=== PATIENT | female | born 1945 | race Caucasian/White ===

== ENCOUNTER 2017-10-25 14:41 | Inpatient (IN) | payer OTHER, BC ==
[~2017-10-25] VITALS: Ht 162.6 cm; Wt 104.0 kg
[~2017-10-25 14:41] MED LIST: ADVIL200 MG PO; AMBIEN5 MG PO; ANTIVERT25 MG PO; ASPIR-TRIN325 M1 PO; Ambien PO; Antivert PO; BIOTIN 5000MCG PO; CELEBREX200 MG PO; CINNAMON PO; CRANBERRY200 MG PO; FEOSOL325 MG PO; FLAX OIL1000 MG PO; GARLIC1000 MG PO; HUMULIN N100 UNITS/ SC; HUMULIN NP100 UNIT/1 SC; HYDROCODON-ACE1 EAC7 PO; K-DUR10 ME2 PO; K-DUR20 MEQ PO; LASIX40 MG PO; LIPITOR20 MG PO; LISINOPRIL30 MG PO; Lopressor PO; MELOXICAM15 MG PO; METFORMIN HCL1000 MG PO; MULTIPLE VITAM1 EAC4 PO; PREVACID 24HR15 MG PO; Prevacid PO; SENOKOT S,PE1 TABLET PO; TOPROL XL50 MG PO; VAGIFEM10 MCG VG; VAGIFEM25 MCG VG; VESICARE5 MG PO; VITAMIN B12-FO1 EACH PO; VITAMIN C1000 MG PO; VITAMIN D32000 UNIT PO; Vicodin,Lortab 5/500 PO; ZESTRIL,PRINIVI10 M1 PO; [UNRECOGNIZED DRUG - OTHER]; [UNRECOGNIZED DRUG - OTHER] PO; [UNRECOGNIZED DRUG - OTHER] PO
[2017-10-25 15:23] LABS: PLATELET COUNT 549 K/uL (156-360)
[2017-10-25 15:31] LABS: HEMATOCRIT 36.2 % (36.0-46.0); MCH 28.6 PG (29.0-34.0); MCHC 33.1 G/DL (30.0-36.0); MCV 86.2 FL (83-99); RBC DIS.WIDTH-CV 13.9 % (11.8-14.6)
[2017-10-25 15:32] LABS: WHITE BLOOD COUNT 39.9 K/uL (4.1-10.2)
[2017-10-25 15:34] LABS: CHLORIDE 95 mEq/L (99-109); SODIUM 129 mEq/L (136-147)
[2017-10-25 15:39] LABS: CREATININE 2.2 mg/dL (0.6-1.3); GFR ESTIMATE (CALCULATED) 23 mL/min/
[2017-10-25 15:40] LABS: GLUCOSE 552 mg/dL (70-99); UREA NITROGEN (BUN) 32 mg/dL (9-23)
[2017-10-25 16:32] LABS: INTER. NORMALIZED RATIO 1.4
[2017-10-25 16:34] LABS: PTT 32.9 SEC (25-37)
[2017-10-25 16:36] LABS: ALBUMIN 3.3 g/dL (3.2-4.8)
[2017-10-25 16:38] LABS: TOTAL PROTEIN 7.4 g/dL (6.4-8.3)
[2017-10-25 16:40] LABS: TOTAL BILIRUBIN 0.9 mg/dL (0.0-1.0)
[2017-10-25 16:41] LABS: ALKALINE PHOSPHATASE 65 IU/L (3-129)
[2017-10-25 16:44] LABS: ALT (GPT) 12 IU/L (3-49); AST (GOT) 11 IU/L (2-34); DIRECT BILIRUBIN 0.6 mg/dL (0.0-0.3)
[2017-10-25 16:45] LABS: LIPASE 11 U/L (1.0-51.0)
[2017-10-25 16:49] LABS: TROP-I INTERPRETATION NEGATIVE; TROPONIN-I 0.02 ng/mL (0.0-0.30)
[2017-10-25 17:45] LABS: APPEARANCE SL.HAZY ((CLEAR)); BILIRUBIN NEGATIVE; BLOOD NEGATIVE; COLOR YELLOW ((YELLOW)); GLUCOSE (STRIP) >=500; KETONES 5; LEUKOCYTES NEGATIVE; NITRITE NEGATIVE; PROTEIN (STRIP) >=500; SPECIFIC GRAVITY 1.032 (1.000-1.030); UROBILINOGEN 0.2 MG/DL (0.2-1.0)
[2017-10-25 18:04] LABS: BACTERIA RARE /HPF; CELLULAR CASTS 0-5 /LPF; EPITHELIAL CELLS 3+ /HPF; HYALINE CASTS 0-5 /LPF; MUCUS TRACE /LPF; RED BLOOD CELLS 0-5 /HPF (0-5); UCUL ADDED? NO; WHITE BLOOD CELLS 0-5 /HPF (0-5)
[2017-10-25 19:09] LABS: POTASSIUM 4.2 mEq/L (3.7-5.4); SODIUM 130 mEq/L (136-147)
[2017-10-25 19:15] LABS: GFR ESTIMATE (CALCULATED) 25 mL/min/
[2017-10-25 19:41] LABS: CHLORIDE 96 mEq/L (99-109)
[2017-10-25 19:46] LABS: CREATININE 2.1 mg/dL (0.6-1.3)
[2017-10-25 19:47] LABS: GLUCOSE 523 mg/dL (70-99); UREA NITROGEN (BUN) 30 mg/dL (9-23)
[2017-10-25 22:54] LABS: APPEARANCE HAZY/YELLOW
[2017-10-25 22:55] LABS: CHLORIDE 101 mEq/L (99-109); POTASSIUM 3.6 mEq/L (3.7-5.4); SODIUM 132 mEq/L (136-147)
[2017-10-25 22:57] LABS: GLUCOSE 319 mg/dL (70-99)
[2017-10-25 23:00] LABS: CREATININE 1.9 mg/dL (0.6-1.3); GFR ESTIMATE (CALCULATED) 28 mL/min/
[2017-10-25 23:01] LABS: UREA NITROGEN (BUN) 33 mg/dL (9-23)
[2017-10-25 23:17] LABS: BODY FLUID RBC'S 325 /MM^3 (0-100)
[2017-10-25 23:18] LABS: BODY FLUID WBC'S 14850 /MM^3 (0-500)
[2017-10-25 23:19] LABS: TYPE OF FLUID PLEURAL
[2017-10-25 23:24] LABS: BODY FLUID EOSINOPHILS 0 % (0-25); MONONUCLEAR WBC'S 2 %; POLYNUCLEAR WBC'S 98 % (0-25)
[2017-10-26 00:34] LABS: PHOSPHORUS 2.2 mg/dL (2.5-4.9)
[2017-10-26 01:00] VITALS: BP 192/78
[2017-10-26 04:41] VITALS: BP 182/80
[2017-10-26 05:11] LABS: CHLORIDE 102 MEQ/L (99-109); POTASSIUM 3.6 MEQ/L (3.7-5.4); SODIUM 132 MEQ/L (136-147); SODIUM 133 MEQ/L (136-147)
[2017-10-26 05:16] LABS: GFR ESTIMATE (CALCULATED) 26 mL/min/; GLUCOSE 301 mg/dL (70-99); PHOSPHORUS 1.9 mg/dL (2.5-4.9); UREA NITROGEN (BUN) 33 mg/dL (9-23)
[2017-10-26 05:17] LABS: GFR ESTIMATE (CALCULATED) 26 mL/min/; GLUCOSE 308 mg/dL (70-99); PHOSPHORUS 1.8 mg/dL (2.5-4.9); UREA NITROGEN (BUN) 33 mg/dL (9-23)
[2017-10-26 05:57] LABS: CHLORIDE 102 MEQ/L (99-109); GFR ESTIMATE (CALCULATED) 26 mL/min/; GLUCOSE 293 mg/dL (70-99); POTASSIUM 3.7 MEQ/L (3.7-5.4); SODIUM 134 MEQ/L (136-147); UREA NITROGEN (BUN) 33 mg/dL (9-23)
[2017-10-26 07:19] LABS: Estimated Average Glucose 169 mg/dL (70-123); HEMOGLOBIN A1c (GLYCOHEMOGLOB) 7.5 % HGB (Below 5.7)
[2017-10-26 08:00] VITALS: BP 114/70
[2017-10-26 12:00] VITALS: BP 168/72
[2017-10-26 12:15] LABS: CHLORIDE 103 MEQ/L (99-109); GFR ESTIMATE (CALCULATED) 26 mL/min/; GLUCOSE 288 mg/dL (70-99); PHOSPHORUS 2.2 mg/dL (2.5-4.9); POTASSIUM 4.2 MEQ/L (3.7-5.4); SODIUM 134 MEQ/L (136-147); UREA NITROGEN (BUN) 35 mg/dL (9-23)
[2017-10-26] MEDS ORDERED: AMLODIPINE BESY10 MG PO (14:17)
[2017-10-26] MEDS ORDERED: ATORVASTATIN CA20 MG PO (14:22)
[2017-10-26] MEDS ORDERED: BIOTIN5 MG PO (14:23)
[2017-10-26] MEDS ORDERED: BUPROPION HCL150 M2 PO (14:31)
[2017-10-26] MEDS ORDERED: CRANBERRY TABL1 EACH PO (14:33)
[2017-10-26] MEDS ORDERED: CYMBALTA60 MG PO (14:34)
[2017-10-26] MEDS ORDERED: TRICOR145 MG PO (14:34)
[2017-10-26] MEDS ORDERED: LEVO-T88 MCG PO (14:35)
[2017-10-26] MEDS ORDERED: JANUVIA25 M1 PO (14:35)
[2017-10-26] MEDS ORDERED: HUMULIN N100 UNITS/ SC (14:35)
[2017-10-26] MEDS ORDERED: ANTIVERT12.5 MG PO (14:36)
[2017-10-26] MEDS ORDERED: METOPROLOL SUC100 MG PO (14:36)
[2017-10-26] MEDS ORDERED: VESICARE5 MG PO (14:37)
[2017-10-26] MEDS ORDERED: THERAGRAN1 TABLET PO (14:37)
[2017-10-26] MEDS ORDERED: VAGIFEM10 MCG VG (14:37)
[2017-10-26] MEDS ORDERED: CYANOCOBALAM1000 MCG PO (14:38)
[2017-10-26] MEDS ORDERED: AMBIEN10 MG PO (14:39)
[2017-10-26 16:00] VITALS: BP 148/70
[2017-10-26 16:12] LABS: CHLORIDE 100 MEQ/L (99-109); CREATININE 2.1 MG/DL (0.6-1.3); GFR ESTIMATE (CALCULATED) 25 mL/min/; PHOSPHORUS 2.2 mg/dL (2.5-4.9); SODIUM 130 MEQ/L (136-147); UREA NITROGEN (BUN) 38 mg/dL (9-23)
[2017-10-26 16:22] LABS: GLUCOSE 415 mg/dL (70-99)
[2017-10-26 19:28] VITALS: BP 184/84
[2017-10-26 20:19] LABS: CHLORIDE 99 MEQ/L (99-109); POTASSIUM 4.1 MEQ/L (3.7-5.4); SODIUM 129 MEQ/L (136-147)
[2017-10-26 20:54] LABS: GFR ESTIMATE (CALCULATED) 26 mL/min/; PHOSPHORUS 2.4 mg/dL (2.5-4.9); UREA NITROGEN (BUN) 40 mg/dL (9-23)
[2017-10-26 20:56] LABS: GLUCOSE 491 mg/dL (70-99)
[2017-10-27] VITALS (10 sets, daily range): BP systolic 144–191; BP diastolic 70–91
[2017-10-27 05:29] LABS: BASOPHIL (%) 0.1 % (0-1); EOSINOPHIL (%) 0 % (0-5); HEMATOCRIT 29.7 % (36.0-46.0); HEMOGLOBIN 9.6 G/DL (11.9-15.5); IMMATURE GRANULOCYTE (%) 1.9 % (0.0-0.7); LYMPHOCYTE (%) 6.3 % (15-42); LYMPHOCYTE COUNT 1.5 K/uL (1.0-2.8); MCH 28.3 PG (29.0-34.0); MCHC 32.3 G/DL (30.0-36.0); MCV 87.6 FL (83-99); MONOCYTE (%) 6.7 % (3-12); MONOCYTE COUNT 1.6 K/uL (0-0.8); NEUTROPHIL COUNT 20.5 K/uL (1.8-6.4); PLATELET COUNT 444 K/uL (156-360); RBC DIS.WIDTH-CV 13.6 % (11.8-14.6); RBC DIS.WIDTH-SD 43.2 % (39-53); RED BLOOD COUNT 3.39 M/uL (3.80-5.20); WHITE BLOOD COUNT 24.1 K/uL (4.1-10.2)
[2017-10-27 10:31] LABS: CHLORIDE 106 MEQ/L (99-109); CREATININE 2.1 MG/DL (0.6-1.3); GFR ESTIMATE (CALCULATED) 25 mL/min/; POTASSIUM 4.2 MEQ/L (3.7-5.4); UREA NITROGEN (BUN) 44 mg/dL (9-23)
[2017-10-27 10:37] LABS: GLUCOSE 139 mg/dL (70-99); SODIUM 137 MEQ/L (136-147)
[2017-10-28 04:38] VITALS: BP 162/79
[2017-10-28 06:09] LABS: HEMATOCRIT 30.9 % (36.0-46.0); MCH 27.9 PG (29.0-34.0); MCHC 32.4 G/DL (30.0-36.0); MCV 86.1 FL (83-99); NRBC (%) 0.2 /100 WBC (0-0); PLATELET COUNT 567 K/uL (156-360); RBC DIS.WIDTH-CV 13.9 % (11.8-14.6); RBC DIS.WIDTH-SD 44.1 % (39-53); RED BLOOD COUNT 3.59 M/uL (3.80-5.20); WHITE BLOOD COUNT 19.7 K/uL (4.1-10.2)
[2017-10-28 06:11] LABS: CHLORIDE 103 MEQ/L (99-109); CREATININE 2.1 MG/DL (0.6-1.3); GFR ESTIMATE (CALCULATED) 25 mL/min/; POTASSIUM 4.3 MEQ/L (3.7-5.4); SODIUM 134 MEQ/L (136-147); UREA NITROGEN (BUN) 40 mg/dL (9-23)
[2017-10-28 06:12] LABS: GLUCOSE 67 mg/dL (70-99)
[2017-10-28 07:36] VITALS: BP 170/74
[2017-10-28 10:52] VITALS: BP 158/72
[2017-10-28 16:04] VITALS: BP 150/78
[2017-10-28 19:18] VITALS: BP 169/76
[2017-10-28 23:40] VITALS: BP 132/64
[2017-10-29 03:15] VITALS: BP 196/81
[2017-10-29 08:03] VITALS: BP 147/68
[2017-10-29 10:36] LABS: CHLORIDE 107 MEQ/L (99-109); CREATININE 2.1 MG/DL (0.6-1.3); GFR ESTIMATE (CALCULATED) 25 mL/min/; SODIUM 140 MEQ/L (136-147); UREA NITROGEN (BUN) 42 mg/dL (9-23)
[2017-10-29 10:37] LABS: GLUCOSE 198 mg/dL (70-99)
[2017-10-29 11:58] VITALS: BP 135/66
[2017-10-29 15:47] VITALS: BP 159/78
[2017-10-29 19:55] VITALS: BP 134/76
[2017-10-30 04:21] VITALS: BP 148/72
[2017-10-30 05:27] LABS: HEMATOCRIT 29.3 % (36.0-46.0); HEMOGLOBIN 9.2 G/DL (11.9-15.5); MCH 27.5 PG (29.0-34.0); MCHC 31.4 G/DL (30.0-36.0); MCV 87.5 FL (83-99); PLATELET COUNT 537 K/uL (156-360); RBC DIS.WIDTH-CV 14.3 % (11.8-14.6); RBC DIS.WIDTH-SD 45.9 % (39-53); RED BLOOD COUNT 3.35 M/uL (3.80-5.20); WHITE BLOOD COUNT 19.5 K/uL (4.1-10.2)
[2017-10-30 06:08] LABS: CHLORIDE 108 MEQ/L (99-109); CREATININE 2.1 MG/DL (0.6-1.3); GFR ESTIMATE (CALCULATED) 25 mL/min/; GLUCOSE 124 mg/dL (70-99); POTASSIUM 3.5 MEQ/L (3.7-5.4); SODIUM 139 MEQ/L (136-147); UREA NITROGEN (BUN) 35 mg/dL (9-23)
[2017-10-30 07:32] VITALS: BP 152/72
[2017-10-30 10:59] VITALS: BP 138/93
[2017-10-30 15:30] VITALS: BP 187/79
[2017-10-30 23:11] VITALS: BP 130/74
[2017-10-31 04:49] VITALS: BP 181/78
[2017-10-31 06:10] LABS: CHLORIDE 105 MEQ/L (99-109); CREATININE 2.3 MG/DL (0.6-1.3); GFR ESTIMATE (CALCULATED) 22 mL/min/; SODIUM 136 MEQ/L (136-147); UREA NITROGEN (BUN) 39 mg/dL (9-23)
[2017-10-31 06:11] LABS: GLUCOSE 285 mg/dL (70-99); POTASSIUM 5.2 MEQ/L (3.7-5.4)
[2017-10-31 07:12] LABS: HEMOGLOBIN 9.4 G/DL (11.9-15.5); MCH 27.4 PG (29.0-34.0); MCHC 31.3 G/DL (30.0-36.0); MCV 87.5 FL (83-99); PLATELET COUNT 608 K/uL (156-360); RBC DIS.WIDTH-CV 14.4 % (11.8-14.6); RBC DIS.WIDTH-SD 45.8 % (39-53); RED BLOOD COUNT 3.43 M/uL (3.80-5.20); WHITE BLOOD COUNT 19.8 K/uL (4.1-10.2)
[2017-10-31 08:06] VITALS: BP 137/76
[2017-10-31 13:03] VITALS: BP 160/55
[2017-10-31 16:17] VITALS: BP 147/70
[2017-10-31 19:29] VITALS: BP 170/90
[2017-10-31 23:11] VITALS: BP 172/76
[2017-11-01 06:00] LABS: HEMATOCRIT 29.3 % (36.0-46.0); HEMOGLOBIN 9.3 G/DL (11.9-15.5); MCH 27.4 PG (29.0-34.0); MCHC 31.7 G/DL (30.0-36.0); MCV 86.2 FL (83-99); NRBC (%) 0.1 /100 WBC (0-0); PLATELET COUNT 760 K/uL (156-360); RBC DIS.WIDTH-CV 14.4 % (11.8-14.6); RBC DIS.WIDTH-SD 45.4 % (39-53); WHITE BLOOD COUNT 26.8 K/uL (4.1-10.2)
[2017-11-01 07:58] VITALS: BP 186/79
[2017-11-01 16:25] VITALS: BP 178/79
[2017-11-01 23:40] VITALS: BP 162/69
[2017-11-02 06:29] LABS: HEMATOCRIT 30.3 % (36.0-46.0); HEMOGLOBIN 9.5 G/DL (11.9-15.5); MCH 27.4 PG (29.0-34.0); MCHC 31.4 G/DL (30.0-36.0); MCV 87.3 FL (83-99); NRBC (%) 0.1 /100 WBC (0-0); PLATELET COUNT 747 K/uL (156-360); RBC DIS.WIDTH-CV 14.6 % (11.8-14.6); RBC DIS.WIDTH-SD 46.9 % (39-53); RED BLOOD COUNT 3.47 M/uL (3.80-5.20); WHITE BLOOD COUNT 21.6 K/uL (4.1-10.2)
[2017-11-02 06:41] LABS: CHLORIDE 108 MEQ/L (99-109); CREATININE 2.3 MG/DL (0.6-1.3); GFR ESTIMATE (CALCULATED) 22 mL/min/; GLUCOSE 115 mg/dL (70-99); POTASSIUM 4.4 MEQ/L (3.7-5.4); SODIUM 142 MEQ/L (136-147); UREA NITROGEN (BUN) 49 mg/dL (9-23)
[2017-11-02 07:06] LABS: ATYPICAL LYMPHOCYTE 1.7 %; BAND NEUTROPHILS 0.9 % (0-8.0); EOSINOPHIL ABS CT 0; LYMPHOCYTES 18.2 % (15.0-45.0); MONOCYTES 9.6 % (0-9.0); MYELOCYTES 0.9 %; SEG.NEUTROPHILS 68.7 % (46.0-76.0); SMUDGE CELLS 10.4
[2017-11-02 07:14] VITALS: BP 162/71
[2017-11-02 11:30] VITALS: BP 142/78
[2017-11-02 15:53] VITALS: BP 142/72
[2017-11-02 20:03] VITALS: BP 218/91
[2017-11-02 20:21] VITALS: BP 158/74
[2017-11-02 22:59] VITALS: BP 164/84
[2017-11-03 04:30] VITALS: BP 182/85
[2017-11-03 08:14] VITALS: BP 150/90
[2017-11-03 12:01] VITALS: BP 145/79
[2017-11-03 15:52] VITALS: BP 140/90
[2017-11-03 19:59] VITALS: BP 156/80
[2017-11-04 07:36] VITALS: BP 168/78
[2017-11-04 16:23] VITALS: BP 148/78
[2017-11-04 18:20] VITALS: BP 124/75
[2017-11-05 04:23] VITALS: BP 132/70
[2017-11-05 08:05] VITALS: BP 130/61
[2017-11-05 11:46] VITALS: BP 144/70
[2017-11-05 16:05] VITALS: BP 140/64
[2017-11-05 19:59] VITALS: BP 125/68
[2017-11-05 23:03] VITALS: BP 135/63
[2017-11-06 03:40] VITALS: BP 149/70
[2017-11-06 07:41] LABS: CHLORIDE 103 MEQ/L (99-109); POTASSIUM 4.1 MEQ/L (3.7-5.4); SODIUM 136 MEQ/L (136-147)
[2017-11-06 07:48] LABS: HEMATOCRIT 31.4 % (36.0-46.0); HEMOGLOBIN 9.9 G/DL (11.9-15.5); MCHC 31.5 G/DL (30.0-36.0); MCV 88.7 FL (83-99); RBC DIS.WIDTH-CV 14.6 % (11.8-14.6); RBC DIS.WIDTH-SD 47.6 % (39-53); RED BLOOD COUNT 3.54 M/uL (3.80-5.20)
[2017-11-06 07:56] LABS: GFR ESTIMATE (CALCULATED) 31 mL/min/; GLUCOSE 71 mg/dL (70-99); UREA NITROGEN (BUN) 28 mg/dL (9-23)
[2017-11-06 07:59] LABS: CREATININE 1.7 MG/DL (0.6-1.3)
[2017-11-06 08:19] LABS: HEMATOLOGY COMMENT 1 SMEAR COMPATIBLE; PLAT.SUFFICIENCY INCREASED; PLATELET COUNT 490 K/uL (156-360)
[2017-11-06 08:22] VITALS: BP 168/70
[2017-11-06 10:22] VITALS: BP 138/7
[2017-11-06 15:29] VITALS: BP 152/78
[2017-11-06 19:31] VITALS: BP 157/67
[2017-11-06 23:24] VITALS: BP 138/62
[2017-11-07 03:21] VITALS: BP 125/94
[2017-11-07 08:09] VITALS: BP 133/86
[2017-11-07 11:10] VITALS: BP 142/65
[2017-11-07 12:48] LABS: BASOPHIL (%) 0.1 % (0-1); EOSINOPHIL (%) 0.8 % (0-5); EOSINOPHIL COUNT 0.2 K/uL (0-0.3); HEMATOCRIT 29.6 % (36.0-46.0); HEMOGLOBIN 9.2 G/DL (11.9-15.5); LYMPHOCYTE (%) 8.7 % (15-42); LYMPHOCYTE COUNT 1.9 K/uL (1.0-2.8); MCH 27.8 PG (29.0-34.0); MCHC 31.1 G/DL (30.0-36.0); MCV 89.4 FL (83-99); MONOCYTE (%) 7.1 % (3-12); MONOCYTE COUNT 1.6 K/uL (0-0.8); NEUTROPHIL (%) 82.3 % (45-76); NEUTROPHIL COUNT 17.9 K/uL (1.8-6.4); PLATELET COUNT 455 K/uL (156-360); RBC DIS.WIDTH-CV 14.6 % (11.8-14.6); RBC DIS.WIDTH-SD 46.9 % (39-53); RED BLOOD COUNT 3.31 M/uL (3.80-5.20); WHITE BLOOD COUNT 21.7 K/uL (4.1-10.2)
[2017-11-07 13:16] LABS: CHLORIDE 98 MEQ/L (99-109); CREATININE 1.8 MG/DL (0.6-1.3); GFR ESTIMATE (CALCULATED) 29 mL/min/; POTASSIUM 4.2 MEQ/L (3.7-5.4); SODIUM 133 MEQ/L (136-147); UREA NITROGEN (BUN) 25 mg/dL (9-23)
[2017-11-07 13:17] LABS: GLUCOSE 103 mg/dL (70-99)
[2017-11-07 16:30] VITALS: BP 140/66
[2017-11-07 17:50] LABS: APPEARANCE CLOUDY ((CLEAR)); BILIRUBIN NEGATIVE; BLOOD NEGATIVE; COLOR YELLOW ((YELLOW)); GLUCOSE (STRIP) NEGATIVE; KETONES NEGATIVE; LEUKOCYTES NEGATIVE; NITRITE NEGATIVE; PROTEIN (STRIP) 100; SPECIFIC GRAVITY 1.017 (1.000-1.030); UROBILINOGEN 0.2 MG/DL (0.2-1.0)
[2017-11-07 18:03] LABS: BACTERIA RARE /HPF; EPITHELIAL CELLS RARE /HPF; HYALINE CASTS 0-5 /LPF; MUCUS TRACE /LPF; WHITE BLOOD CELLS 0-5 /HPF (0-5)
[2017-11-07 20:33] VITALS: BP 132/62
[2017-11-07 23:41] VITALS: BP 147/67
[2017-11-08 04:28] VITALS: BP 162/69
[2017-11-08 08:19] VITALS: BP 133/80
[2017-11-08 11:32] VITALS: BP 163/78
[2017-11-08 15:37] VITALS: BP 168/62
[2017-11-08 19:46] VITALS: BP 180/74
[2017-11-08 23:51] VITALS: BP 188/77
[2017-11-09 03:46] VITALS: BP 145/73
[2017-11-09 07:58] VITALS: BP 147/67
[2017-11-09 12:23] VITALS: BP 170/69
[2017-11-09 15:55] VITALS: BP 163/89
[2017-11-09 19:48] VITALS: BP 162/82
[2017-11-09 23:20] VITALS: BP 168/75
[2017-11-10] VITALS (17 sets, daily range): BP systolic 128–170; BP diastolic 58–96
[2017-11-10 06:04] LABS: BASOPHIL (%) 0.5 % (0-1); BASOPHIL COUNT 0.1 K/uL (0-0.1); EOSINOPHIL (%) 0.7 % (0-5); EOSINOPHIL COUNT 0.1 K/uL (0-0.3); HEMATOCRIT 23.1 % (36.0-46.0); HEMOGLOBIN 7.3 G/DL (11.9-15.5); IMMATURE GRANULOCYTE (%) 0.7 % (0.0-0.7); LYMPHOCYTE (%) 20.7 % (15-42); LYMPHOCYTE COUNT 2.2 K/uL (1.0-2.8); MCH 27.9 PG (29.0-34.0); MCHC 31.6 G/DL (30.0-36.0); MCV 88.2 FL (83-99); MONOCYTE (%) 11.2 % (3-12); MONOCYTE COUNT 1.2 K/uL (0-0.8); NEUTROPHIL (%) 66.2 % (45-76); PLATELET COUNT 385 K/uL (156-360); RBC DIS.WIDTH-CV 14.5 % (11.8-14.6); RBC DIS.WIDTH-SD 46.5 % (39-53); WHITE BLOOD COUNT 10.6 K/uL (4.1-10.2)
[2017-11-10 06:23] LABS: RED BLOOD COUNT 2.62 M/uL (3.80-5.20)
[2017-11-10 06:26] LABS: GLUCOSE 131 mg/dL (70-99)
[2017-11-10 07:13] LABS: BASE EXCESS 1.2 mEq/L (-3 to +3); BICARBONATE 24.6 mEq/L (22-26); CARBOXY HGB 0.8 % (0-5); METHEMOGLOBIN 0.8 % (0-1.5); PCO2 33 mm Hg (35-45); PO2 174 mm Hg (80-100); pH 7.48 (7.35-7.45)
[2017-11-10 07:14] LABS: COMMENTS - BLOOD GASES A+C+; DEVICE 840 PB; FI02 80 %; MODE SPONT; O2 FLOW 70 L/MIN; PEEP 6 CM/H20; PRES. SUPPORT 12 CM/H2O; SITE RR; TOTAL RESP RATE 25 resp/min
[2017-11-10 08:30] LABS: CREATININE 1.7 MG/DL (0.6-1.3); GFR ESTIMATE (CALCULATED) 31 mL/min/; UREA NITROGEN (BUN) 14 mg/dL (9-23)
[2017-11-10 09:05] LABS: CHLORIDE 103 MEQ/L (99-109); POTASSIUM 3.5 MEQ/L (3.7-5.4); SODIUM 138 MEQ/L (136-147)
[2017-11-11] VITALS (23 sets, daily range): BP systolic 130–186; BP diastolic 56–97
[2017-11-11 14:53] LABS: CHLORIDE 102 MEQ/L (99-109); POTASSIUM 3.2 MEQ/L (3.7-5.4); SODIUM 139 MEQ/L (136-147)
[2017-11-11 14:59] LABS: CREATININE 1.6 MG/DL (0.6-1.3); GFR ESTIMATE (CALCULATED) 34 mL/min/; GLUCOSE 143 mg/dL (70-99); UREA NITROGEN (BUN) 14 mg/dL (9-23)
[2017-11-11 15:55] LABS: BASOPHIL (%) 0.4 % (0-1); EOSINOPHIL (%) 0.4 % (0-5); HEMOGLOBIN 8.3 G/DL (11.9-15.5); IMMATURE GRANULOCYTE (%) 0.6 % (0.0-0.7); LYMPHOCYTE (%) 16.2 % (15-42); LYMPHOCYTE COUNT 1.9 K/uL (1.0-2.8); MCH 27.1 PG (29.0-34.0); MCHC 30.7 G/DL (30.0-36.0); MCV 88.2 FL (83-99); MONOCYTE (%) 8.6 % (3-12); NEUTROPHIL (%) 73.8 % (45-76); NEUTROPHIL COUNT 8.4 K/uL (1.8-6.4); PLATELET COUNT 401 K/uL (156-360); RBC DIS.WIDTH-CV 14.6 % (11.8-14.6); RED BLOOD COUNT 3.06 M/uL (3.80-5.20); WHITE BLOOD COUNT 11.4 K/uL (4.1-10.2)
[2017-11-12] VITALS (25 sets, daily range): BP systolic 85–183; BP diastolic 57–118
[2017-11-12 05:51] LABS: BASOPHIL (%) 0.3 % (0-1); EOSINOPHIL (%) 0.4 % (0-5); HEMATOCRIT 22.1 % (36.0-46.0); IMMATURE GRANULOCYTE (%) 0.6 % (0.0-0.7); LYMPHOCYTE (%) 16.7 % (15-42); LYMPHOCYTE COUNT 1.8 K/uL (1.0-2.8); MCH 27.1 PG (29.0-34.0); MCHC 30.8 G/DL (30.0-36.0); MONOCYTE (%) 9.2 % (3-12); NEUTROPHIL (%) 72.8 % (45-76); NEUTROPHIL COUNT 7.9 K/uL (1.8-6.4); PLATELET COUNT 425 K/uL (156-360); RBC DIS.WIDTH-CV 14.7 % (11.8-14.6); RBC DIS.WIDTH-SD 47.7 % (39-53); RED BLOOD COUNT 2.51 M/uL (3.80-5.20); WHITE BLOOD COUNT 10.8 K/uL (4.1-10.2)
[2017-11-12 05:52] LABS: HEMOGLOBIN 6.8 G/DL (11.9-15.5)
[2017-11-12 06:28] LABS: CHLORIDE 106 MEQ/L (99-109); CREATININE 1.6 MG/DL (0.6-1.3); GFR ESTIMATE (CALCULATED) 34 mL/min/; GLUCOSE 148 mg/dL (70-99); SODIUM 139 MEQ/L (136-147); UREA NITROGEN (BUN) 14 mg/dL (9-23)
[2017-11-12 06:29] LABS: POTASSIUM 4.3 MEQ/L (3.7-5.4)
[2017-11-12 10:01] LABS: BASE EXCESS 2.4 mEq/L (-3 to +3); BICARBONATE 26.2 mEq/L (22-26); CARBOXY HGB 1.4 % (0-5); COMMENTS - BLOOD GASES A+C+; DEVICE CPAP/BIPAP; METHEMOGLOBIN 1.4 % (0-1.5); O2 FLOW 15 L/MIN; PCO2 36 mm Hg (35-45); PO2 143 mm Hg (80-100); SITE RR; TOTAL RESP RATE 24 resp/min; pH 7.47 (7.35-7.45)
[2017-11-12 14:59] LABS: HEMATOCRIT 27.9 % (36.0-46.0); HEMOGLOBIN 8.7 G/DL (11.9-15.5); MCH 27.6 PG (29.0-34.0); MCHC 31.2 G/DL (30.0-36.0); MCV 88.6 FL (83-99); PLATELET COUNT 451 K/uL (156-360); RBC DIS.WIDTH-CV 14.6 % (11.8-14.6); WHITE BLOOD COUNT 10.7 K/uL (4.1-10.2)
[2017-11-12 15:10] LABS: RED BLOOD COUNT 3.15 M/uL (3.80-5.20)
[2017-11-13] VITALS (24 sets, daily range): BP systolic 126–167; BP diastolic 56–89
[2017-11-13 15:30] LABS: ABSOLUTE RETICULOCYTE CT. 0.1 M/uL (0.02-0.08); IMM.RETIC FRACTION 25.9 % (3-19); RETIC HGB EQUIVALENT 27.5 (28-36)
[2017-11-13 16:03] LABS: IRON 23 MCG/DL (35-150); LACTATE DEHYDROGENASE 226 IU/L (20-246); TRANSFERRIN (TIBC) 133.1 mg/dL (215-380); TRANSFERRIN SATUR. 17 % (20-55)
[2017-11-13 16:26] LABS: THYROTROPIN (TSH) 6.6 MIU/L (0.4-5.5)
[2017-11-13 18:07] LABS: HIGH-SENS C-REACTIVE PROTEIN > 8.00 MG/DL (0.02-0.20)
[2017-11-14] VITALS (19 sets, daily range): BP systolic 107–178; BP diastolic 47–145
[2017-11-14 06:52] LABS: BASOPHIL (%) 0.5 % (0-1); EOSINOPHIL (%) 2.3 % (0-5); EOSINOPHIL COUNT 0.2 K/uL (0-0.3); HEMATOCRIT 26.8 % (36.0-46.0); HEMOGLOBIN 8.5 G/DL (11.9-15.5); IMMATURE GRANULOCYTE (%) 0.6 % (0.0-0.7); LYMPHOCYTE (%) 25.9 % (15-42); LYMPHOCYTE COUNT 2.2 K/uL (1.0-2.8); MCH 28.1 PG (29.0-34.0); MCHC 31.7 G/DL (30.0-36.0); MCV 88.4 FL (83-99); MONOCYTE (%) 9.8 % (3-12); MONOCYTE COUNT 0.9 K/uL (0-0.8); NEUTROPHIL (%) 60.9 % (45-76); NEUTROPHIL COUNT 5.3 K/uL (1.8-6.4); PLATELET COUNT 429 K/uL (156-360); RBC DIS.WIDTH-CV 14.9 % (11.8-14.6); RBC DIS.WIDTH-SD 47.7 % (39-53); RED BLOOD COUNT 3.03 M/uL (3.80-5.20); WHITE BLOOD COUNT 8.7 K/uL (4.1-10.2)
[2017-11-14 07:10] LABS: ALBUMIN 2.4 G/DL (3.2-4.8); CHLORIDE 101 MEQ/L (99-109); MAGNESIUM 1.4 mg/dl (1.3-2.7); POTASSIUM 3.5 MEQ/L (3.7-5.4); SODIUM 138 MEQ/L (136-147); TOTAL BILIRUBIN 0.5 MG/DL (0.0-1.0)
[2017-11-14 07:15] LABS: ALKALINE PHOSPHATASE 66 IU/L (3-129); ALT (GPT) 10 IU/L (3-49); AST (GOT) 13 IU/L (2-34); CREATININE 1.5 MG/DL (0.6-1.3); GFR ESTIMATE (CALCULATED) 36 mL/min/; GLUCOSE 180 mg/dL (70-99); PHOSPHORUS 2.2 mg/dL (2.5-4.9); TOTAL PROTEIN 5.9 G/DL (6.4-8.3); UREA NITROGEN (BUN) 12 mg/dL (9-23)
[2017-11-15] VITALS (21 sets, daily range): BP systolic 0–198; BP diastolic 0–170
[2017-11-15 06:47] LABS: BASOPHIL (%) 0.5 % (0-1); EOSINOPHIL (%) 1.7 % (0-5); EOSINOPHIL COUNT 0.1 K/uL (0-0.3); HEMATOCRIT 25.3 % (36.0-46.0); HEMOGLOBIN 7.8 G/DL (11.9-15.5); IMMATURE GRANULOCYTE (%) 0.7 % (0.0-0.7); LYMPHOCYTE (%) 29.8 % (15-42); LYMPHOCYTE COUNT 2.3 K/uL (1.0-2.8); MCH 27.1 PG (29.0-34.0); MCHC 30.8 G/DL (30.0-36.0); MCV 87.8 FL (83-99); MONOCYTE (%) 11.1 % (3-12); MONOCYTE COUNT 0.8 K/uL (0-0.8); NEUTROPHIL (%) 56.2 % (45-76); NEUTROPHIL COUNT 4.3 K/uL (1.8-6.4); PLATELET COUNT 410 K/uL (156-360); RBC DIS.WIDTH-CV 14.6 % (11.8-14.6); RBC DIS.WIDTH-SD 46.7 % (39-53); RED BLOOD COUNT 2.88 M/uL (3.80-5.20); WHITE BLOOD COUNT 7.6 K/uL (4.1-10.2)
[2017-11-15 07:26] LABS: ALBUMIN 2.4 G/DL (3.2-4.8); ALKALINE PHOSPHATASE 62 IU/L (3-129); ALT (GPT) 10 IU/L (3-49); AST (GOT) 12 IU/L (2-34); CHLORIDE 103 MEQ/L (99-109); CREATININE 1.7 MG/DL (0.6-1.3); GFR ESTIMATE (CALCULATED) 31 mL/min/; GLUCOSE 149 mg/dL (70-99); MAGNESIUM 1.4 mg/dl (1.3-2.7); PHOSPHORUS 2.8 mg/dL (2.5-4.9); POTASSIUM 3.5 MEQ/L (3.7-5.4); SODIUM 141 MEQ/L (136-147); TOTAL BILIRUBIN 0.4 MG/DL (0.0-1.0); TOTAL PROTEIN 5.7 G/DL (6.4-8.3); UREA NITROGEN (BUN) 9 mg/dL (9-23)
[2017-11-16] VITALS (22 sets, daily range): BP systolic 102–197; BP diastolic 56–123
[2017-11-16 07:13] LABS: BASOPHIL (%) 0.5 % (0-1); BASOPHIL COUNT 0.1 K/uL (0-0.1); EOSINOPHIL (%) 1.5 % (0-5); EOSINOPHIL COUNT 0.2 K/uL (0-0.3); HEMATOCRIT 27.5 % (36.0-46.0); HEMOGLOBIN 8.5 G/DL (11.9-15.5); IMMATURE GRANULOCYTE (%) 1.3 % (0.0-0.7); LYMPHOCYTE COUNT 2.1 K/uL (1.0-2.8); MCH 27.3 PG (29.0-34.0); MCHC 30.9 G/DL (30.0-36.0); MCV 88.4 FL (83-99); MONOCYTE (%) 10.6 % (3-12); MONOCYTE COUNT 1.1 K/uL (0-0.8); NEUTROPHIL (%) 66.1 % (45-76); NEUTROPHIL COUNT 7.1 K/uL (1.8-6.4); PLATELET COUNT 444 K/uL (156-360); RBC DIS.WIDTH-SD 48.3 % (39-53); RED BLOOD COUNT 3.11 M/uL (3.80-5.20); WHITE BLOOD COUNT 10.7 K/uL (4.1-10.2)
[2017-11-16 07:36] LABS: ALBUMIN 2.7 G/DL (3.2-4.8); ALKALINE PHOSPHATASE 81 IU/L (3-129); ALT (GPT) 14 IU/L (3-49); AST (GOT) 22 IU/L (2-34); CHLORIDE 102 MEQ/L (99-109); CREATININE 1.6 MG/DL (0.6-1.3); GFR ESTIMATE (CALCULATED) 34 mL/min/; GLUCOSE 199 mg/dL (70-99); MAGNESIUM 1.4 mg/dl (1.3-2.7); PHOSPHORUS 2.4 mg/dL (2.5-4.9); POTASSIUM 3.8 MEQ/L (3.7-5.4); SODIUM 137 MEQ/L (136-147); TOTAL BILIRUBIN 0.6 MG/DL (0.0-1.0); TOTAL PROTEIN 6.7 G/DL (6.4-8.3); UREA NITROGEN (BUN) 10 mg/dL (9-23)
[2017-11-16 08:11] LABS: BASE EXCESS 1.2 mEq/L (-3 to +3); BICARBONATE 23.7 mEq/L (22-26); CARBOXY HGB 1.3 % (0-5); METHEMOGLOBIN 1.3 % (0-1.5); pH 7.52 (7.35-7.45)
[2017-11-16 08:12] LABS: COMMENTS - BLOOD GASES +C; DEVICE HHFNC; FI02 65 %; O2 FLOW 30 L/MIN; PCO2 29 mm Hg (35-45); PO2 55 mm Hg (80-100); SITE RR +A; TOTAL RESP RATE 44 resp/min
[2017-11-17] VITALS (24 sets, daily range): BP systolic 136–177; BP diastolic 55–119
[2017-11-17 10:03] LABS: BASOPHIL (%) 0.6 % (0-1); BASOPHIL COUNT 0.1 K/uL (0-0.1); EOSINOPHIL (%) 2.4 % (0-5); EOSINOPHIL COUNT 0.2 K/uL (0-0.3); HEMATOCRIT 26.1 % (36.0-46.0); HEMOGLOBIN 7.7 G/DL (11.9-15.5); IMMATURE GRANULOCYTE (%) 1.1 % (0.0-0.7); LYMPHOCYTE (%) 24.1 % (15-42); LYMPHOCYTE COUNT 2.3 K/uL (1.0-2.8); MCH 26.8 PG (29.0-34.0); MCHC 29.5 G/DL (30.0-36.0); MCV 90.9 FL (83-99); MONOCYTE (%) 11.4 % (3-12); MONOCYTE COUNT 1.1 K/uL (0-0.8); NEUTROPHIL (%) 60.4 % (45-76); NEUTROPHIL COUNT 5.9 K/uL (1.8-6.4); PLATELET COUNT 465 K/uL (156-360); RBC DIS.WIDTH-CV 15.2 % (11.8-14.6); RED BLOOD COUNT 2.87 M/uL (3.80-5.20); WHITE BLOOD COUNT 9.7 K/uL (4.1-10.2)
[2017-11-17 10:26] LABS: ALBUMIN 2.6 G/DL (3.2-4.8); ALKALINE PHOSPHATASE 75 IU/L (3-129); ALT (GPT) 13 IU/L (3-49); AST (GOT) 20 IU/L (2-34); CHLORIDE 102 MEQ/L (99-109); CREATININE 1.7 MG/DL (0.6-1.3); GFR ESTIMATE (CALCULATED) 31 mL/min/; GLUCOSE 143 mg/dL (70-99); MAGNESIUM 1.5 mg/dl (1.3-2.7); POTASSIUM 3.9 MEQ/L (3.7-5.4); SODIUM 140 MEQ/L (136-147); TOTAL PROTEIN 6.7 G/DL (6.4-8.3); UREA NITROGEN (BUN) 13 mg/dL (9-23)
[2017-11-17 10:27] LABS: TOTAL BILIRUBIN 0.4 MG/DL (0.0-1.0)
[2017-11-17 11:04] LABS: BASE EXCESS 3.7 mEq/L (-3 to +3); BICARBONATE 28.5 mEq/L (22-26); PCO2 43 mm Hg (35-45); PO2 77 mm Hg (80-100); SITE RR; pH 7.43 (7.35-7.45)
[2017-11-17 11:05] LABS: COMMENTS - BLOOD GASES A+C+; DEVICE HHFNC; FI02 90 %; O2 FLOW 40 L/MIN; TOTAL RESP RATE 34 resp/min
[2017-11-18] VITALS (23 sets, daily range): BP systolic 93–202; BP diastolic 60–133
[2017-11-18 07:10] LABS: ALBUMIN 2.6 G/DL (3.2-4.8); ALKALINE PHOSPHATASE 77 IU/L (3-129); ALT (GPT) 12 IU/L (3-49); AST (GOT) 15 IU/L (2-34); CHLORIDE 102 MEQ/L (99-109); CREATININE 1.7 MG/DL (0.6-1.3); GFR ESTIMATE (CALCULATED) 31 mL/min/; GLUCOSE 130 mg/dL (70-99); MAGNESIUM 1.6 mg/dl (1.3-2.7); PHOSPHORUS 4.5 mg/dL (2.5-4.9); POTASSIUM 3.8 MEQ/L (3.7-5.4); SODIUM 140 MEQ/L (136-147); TOTAL BILIRUBIN 0.4 MG/DL (0.0-1.0); TOTAL PROTEIN 6.5 G/DL (6.4-8.3); UREA NITROGEN (BUN) 14 mg/dL (9-23)
[2017-11-18 08:14] LABS: BASOPHIL (%) 0.7 % (0-1); BASOPHIL COUNT 0.1 K/uL (0-0.1); EOSINOPHIL (%) 3.1 % (0-5); EOSINOPHIL COUNT 0.3 K/uL (0-0.3); HEMATOCRIT 26.5 % (36.0-46.0); HEMOGLOBIN 8.2 G/DL (11.9-15.5); IMMATURE GRANULOCYTE (%) 1.6 % (0.0-0.7); LYMPHOCYTE (%) 29.5 % (15-42); LYMPHOCYTE COUNT 2.5 K/uL (1.0-2.8); MCH 27.8 PG (29.0-34.0); MCHC 30.9 G/DL (30.0-36.0); MCV 89.8 FL (83-99); MONOCYTE (%) 11.4 % (3-12); NEUTROPHIL (%) 53.7 % (45-76); NEUTROPHIL COUNT 4.6 K/uL (1.8-6.4); PLATELET COUNT 511 K/uL (156-360); RBC DIS.WIDTH-CV 15.4 % (11.8-14.6); RBC DIS.WIDTH-SD 50.1 % (39-53); RED BLOOD COUNT 2.95 M/uL (3.80-5.20); WHITE BLOOD COUNT 8.5 K/uL (4.1-10.2)
[2017-11-19] VITALS (22 sets, daily range): BP systolic 105–200; BP diastolic 62–114
[2017-11-19 05:30] LABS: BASOPHIL (%) 0.4 % (0-1); EOSINOPHIL (%) 2.2 % (0-5); EOSINOPHIL COUNT 0.2 K/uL (0-0.3); HEMATOCRIT 25.3 % (36.0-46.0); HEMOGLOBIN 7.7 G/DL (11.9-15.5); IMMATURE GRANULOCYTE (%) 1.3 % (0.0-0.7); LYMPHOCYTE (%) 30.7 % (15-42); LYMPHOCYTE COUNT 2.8 K/uL (1.0-2.8); MCH 27.1 PG (29.0-34.0); MCHC 30.4 G/DL (30.0-36.0); MCV 89.1 FL (83-99); MONOCYTE (%) 11.4 % (3-12); NEUTROPHIL COUNT 4.9 K/uL (1.8-6.4); PLATELET COUNT 511 K/uL (156-360); RBC DIS.WIDTH-CV 15.4 % (11.8-14.6); RBC DIS.WIDTH-SD 49.7 % (39-53); RED BLOOD COUNT 2.84 M/uL (3.80-5.20); WHITE BLOOD COUNT 9.1 K/uL (4.1-10.2)
[2017-11-19 05:55] LABS: ALBUMIN 2.4 G/DL (3.2-4.8); ALKALINE PHOSPHATASE 71 IU/L (3-129); ALT (GPT) 9 IU/L (3-49); AST (GOT) 14 IU/L (2-34); CHLORIDE 100 MEQ/L (99-109); CREATININE 1.5 MG/DL (0.6-1.3); GFR ESTIMATE (CALCULATED) 36 mL/min/; GLUCOSE 139 mg/dL (70-99); MAGNESIUM 1.5 mg/dl (1.3-2.7); PHOSPHORUS 3.1 mg/dL (2.5-4.9); POTASSIUM 3.6 MEQ/L (3.7-5.4); SODIUM 138 MEQ/L (136-147); TOTAL BILIRUBIN 0.4 MG/DL (0.0-1.0); TOTAL PROTEIN 6.1 G/DL (6.4-8.3); UREA NITROGEN (BUN) 13 mg/dL (9-23)
[2017-11-19 08:59] LABS: INTER. NORMALIZED RATIO 1.3
[2017-11-19 09:02] LABS: PTT 30.1 SEC (25-37)
[2017-11-19 18:10] LABS: TYPE OF FLUID PLEURAL
[2017-11-19 18:47] LABS: APPEARANCE HAZY-YELLOW; BODY FLUID EOSINOPHILS 0 % (0-25); BODY FLUID RBC'S 1000 /MM^3 (0-100); BODY FLUID WBC'S 2876 /MM^3 (0-500); MONONUCLEAR WBC'S 18 %; POLYNUCLEAR WBC'S 82 % (0-25)
[2017-11-19 19:00] LABS: BODY FLUID GLUCOSE 208 MG/DL; BODY FLUID LDH 134 IU/L
[2017-11-19 19:03] LABS: BODY FLUID PROTEIN < 3.0 G/DL
[2017-11-19 20:43] LABS: LACTATE DEHYDROGENASE 226 IU/L (20-246)
[2017-11-19 20:45] LABS: GLUCOSE 220 mg/dL (70-99); TOTAL PROTEIN 7.4 G/DL (6.4-8.3)
[2017-11-20] VITALS (23 sets, daily range): BP systolic 122–207; BP diastolic 56–96
[2017-11-20 08:07] LABS: BASOPHIL (%) 0.6 % (0-1); BASOPHIL COUNT 0.1 K/uL (0-0.1); EOSINOPHIL (%) 1.3 % (0-5); EOSINOPHIL COUNT 0.1 K/uL (0-0.3); HEMATOCRIT 26.6 % (36.0-46.0); HEMOGLOBIN 8.2 G/DL (11.9-15.5); IMMATURE GRANULOCYTE (%) 1.8 % (0.0-0.7); LYMPHOCYTE (%) 29.5 % (15-42); LYMPHOCYTE COUNT 2.7 K/uL (1.0-2.8); MCH 27.4 PG (29.0-34.0); MCHC 30.8 G/DL (30.0-36.0); MONOCYTE (%) 11.2 % (3-12); NEUTROPHIL (%) 55.6 % (45-76); PLATELET COUNT 545 K/uL (156-360); RBC DIS.WIDTH-CV 15.7 % (11.8-14.6); RBC DIS.WIDTH-SD 50.1 % (39-53); RED BLOOD COUNT 2.99 M/uL (3.80-5.20)
[2017-11-20 08:32] LABS: ALBUMIN 2.5 G/DL (3.2-4.8); ALKALINE PHOSPHATASE 67 IU/L (3-129); ALT (GPT) 9 IU/L (3-49); AST (GOT) 12 IU/L (2-34); CHLORIDE 101 MEQ/L (99-109); CREATININE 1.4 MG/DL (0.6-1.3); GFR ESTIMATE (CALCULATED) 39 mL/min/; GLUCOSE 180 mg/dL (70-99); MAGNESIUM 1.5 mg/dl (1.3-2.7); PHOSPHORUS 2.3 mg/dL (2.5-4.9); POTASSIUM 3.7 MEQ/L (3.7-5.4); SODIUM 137 MEQ/L (136-147); TOTAL BILIRUBIN 0.4 MG/DL (0.0-1.0); TOTAL PROTEIN 6.3 G/DL (6.4-8.3); UREA NITROGEN (BUN) 13 mg/dL (9-23)
[2017-11-21] VITALS (25 sets, daily range): BP systolic 112–172; BP diastolic 54–127
[2017-11-21 07:04] LABS: BASOPHIL (%) 0.6 % (0-1); BASOPHIL COUNT 0.1 K/uL (0-0.1); EOSINOPHIL COUNT 0.2 K/uL (0-0.3); HEMATOCRIT 26.6 % (36.0-46.0); HEMOGLOBIN 8.1 G/DL (11.9-15.5); IMMATURE GRANULOCYTE (%) 1.5 % (0.0-0.7); LYMPHOCYTE (%) 28.1 % (15-42); LYMPHOCYTE COUNT 2.8 K/uL (1.0-2.8); MCH 27.3 PG (29.0-34.0); MCHC 30.5 G/DL (30.0-36.0); MCV 89.6 FL (83-99); MONOCYTE (%) 12.7 % (3-12); MONOCYTE COUNT 1.3 K/uL (0-0.8); NEUTROPHIL (%) 55.1 % (45-76); NEUTROPHIL COUNT 5.6 K/uL (1.8-6.4); PLATELET COUNT 603 K/uL (156-360); RBC DIS.WIDTH-CV 15.7 % (11.8-14.6); RBC DIS.WIDTH-SD 50.4 % (39-53); RED BLOOD COUNT 2.97 M/uL (3.80-5.20); WHITE BLOOD COUNT 10.1 K/uL (4.1-10.2)
[2017-11-21 07:34] LABS: ALBUMIN 2.5 G/DL (3.2-4.8); ALKALINE PHOSPHATASE 66 IU/L (3-129); ALT (GPT) 9 IU/L (3-49); AST (GOT) 12 IU/L (2-34); CHLORIDE 101 MEQ/L (99-109); CREATININE 1.5 MG/DL (0.6-1.3); GFR ESTIMATE (CALCULATED) 36 mL/min/; GLUCOSE 186 mg/dL (70-99); MAGNESIUM 1.5 mg/dl (1.3-2.7); PHOSPHORUS 2.8 mg/dL (2.5-4.9); POTASSIUM 4.1 MEQ/L (3.7-5.4); SODIUM 138 MEQ/L (136-147); TOTAL BILIRUBIN 0.4 MG/DL (0.0-1.0); TOTAL PROTEIN 6.3 G/DL (6.4-8.3); UREA NITROGEN (BUN) 14 mg/dL (9-23)
[2017-11-22] VITALS (22 sets, daily range): BP systolic 132–201; BP diastolic 63–147
[2017-11-22 03:09] LABS: BODY FLUID PH 7.8 (())
[2017-11-22 07:49] LABS: BASOPHIL (%) 0.7 % (0-1); BASOPHIL COUNT 0.1 K/uL (0-0.1); EOSINOPHIL (%) 3.3 % (0-5); EOSINOPHIL COUNT 0.4 K/uL (0-0.3); HEMATOCRIT 28.5 % (36.0-46.0); HEMOGLOBIN 8.5 G/DL (11.9-15.5); IMMATURE GRANULOCYTE (%) 2.5 % (0.0-0.7); LYMPHOCYTE (%) 28.1 % (15-42); LYMPHOCYTE COUNT 3.1 K/uL (1.0-2.8); MCH 26.8 PG (29.0-34.0); MCHC 29.8 G/DL (30.0-36.0); MCV 89.9 FL (83-99); MONOCYTE (%) 11.7 % (3-12); MONOCYTE COUNT 1.3 K/uL (0-0.8); NEUTROPHIL (%) 53.7 % (45-76); NEUTROPHIL COUNT 5.9 K/uL (1.8-6.4); PLATELET COUNT 617 K/uL (156-360); RBC DIS.WIDTH-CV 15.6 % (11.8-14.6); RBC DIS.WIDTH-SD 50.8 % (39-53); RED BLOOD COUNT 3.17 M/uL (3.80-5.20)
[2017-11-22 08:14] LABS: ALBUMIN 2.6 G/DL (3.2-4.8); ALKALINE PHOSPHATASE 70 IU/L (3-129); ALT (GPT) 9 IU/L (3-49); AST (GOT) 17 IU/L (2-34); CHLORIDE 100 MEQ/L (99-109); CREATININE 1.5 MG/DL (0.6-1.3); GFR ESTIMATE (CALCULATED) 36 mL/min/; GLUCOSE 206 mg/dL (70-99); MAGNESIUM 1.5 mg/dl (1.3-2.7); PHOSPHORUS 2.7 mg/dL (2.5-4.9); POTASSIUM 4.4 MEQ/L (3.7-5.4); SODIUM 137 MEQ/L (136-147); TOTAL PROTEIN 6.7 G/DL (6.4-8.3); UREA NITROGEN (BUN) 16 mg/dL (9-23)
[2017-11-22 08:15] LABS: TOTAL BILIRUBIN 0.5 MG/DL (0.0-1.0)
[2017-11-23] VITALS (23 sets, daily range): BP systolic 137–203; BP diastolic 54–112
[2017-11-23 07:07] LABS: BASOPHIL (%) 0.8 % (0-1); BASOPHIL COUNT 0.1 K/uL (0-0.1); EOSINOPHIL COUNT 0.3 K/uL (0-0.3); HEMOGLOBIN 8.8 G/DL (11.9-15.5); IMMATURE GRANULOCYTE (%) 2.1 % (0.0-0.7); LYMPHOCYTE COUNT 3.6 K/uL (1.0-2.8); MCH 27.7 PG (29.0-34.0); MCHC 31.4 G/DL (30.0-36.0); MCV 88.1 FL (83-99); MONOCYTE COUNT 1.3 K/uL (0-0.8); NEUTROPHIL (%) 49.1 % (45-76); NEUTROPHIL COUNT 5.3 K/uL (1.8-6.4); NRBC (%) 0.2 /100 WBC (0-0); PLATELET COUNT 623 K/uL (156-360); RBC DIS.WIDTH-CV 15.6 % (11.8-14.6); RBC DIS.WIDTH-SD 49.4 % (39-53); RED BLOOD COUNT 3.18 M/uL (3.80-5.20); WHITE BLOOD COUNT 10.8 K/uL (4.1-10.2)
[2017-11-23 07:31] LABS: ALBUMIN 2.7 G/DL (3.2-4.8); ALKALINE PHOSPHATASE 69 IU/L (3-129); ALT (GPT) 8 IU/L (3-49); AST (GOT) 11 IU/L (2-34); CHLORIDE 97 MEQ/L (99-109); CREATININE 1.5 MG/DL (0.6-1.3); GFR ESTIMATE (CALCULATED) 36 mL/min/; GLUCOSE 210 mg/dL (70-99); MAGNESIUM 1.3 mg/dl (1.3-2.7); POTASSIUM 3.7 MEQ/L (3.7-5.4); SODIUM 137 MEQ/L (136-147); TOTAL BILIRUBIN 0.5 MG/DL (0.0-1.0); TOTAL PROTEIN 6.3 G/DL (6.4-8.3); UREA NITROGEN (BUN) 18 mg/dL (9-23)
[2017-11-23 23:14] LABS: BASE EXCESS 9.4 mEq/L (-3 to +3); BICARBONATE 32.4 mEq/L (22-26); CARBOXY HGB 1.5 % (0-5); COMMENTS - BLOOD GASES C+A+; DEVICE HHFNC; FI02 70 %; METHEMOGLOBIN 1.2 % (0-1.5); O2 FLOW 40 L/MIN; PCO2 37 mm Hg (35-45); PO2 70 mm Hg (80-100); SITE RR; pH 7.55 (7.35-7.45)
[2017-11-23 23:15] LABS: TOTAL RESP RATE 20 resp/min
[2017-11-24] VITALS (20 sets, daily range): BP systolic 130–186; BP diastolic 59–100
[2017-11-24 11:24] LABS: BASOPHIL (%) 0.7 % (0-1); BASOPHIL COUNT 0.1 K/uL (0-0.1); EOSINOPHIL (%) 1.6 % (0-5); EOSINOPHIL COUNT 0.2 K/uL (0-0.3); HEMATOCRIT 28.9 % (36.0-46.0); IMMATURE GRANULOCYTE (%) 1.9 % (0.0-0.7); LYMPHOCYTE (%) 31.7 % (15-42); LYMPHOCYTE COUNT 3.3 K/uL (1.0-2.8); MCH 27.2 PG (29.0-34.0); MCHC 31.1 G/DL (30.0-36.0); MCV 87.3 FL (83-99); MONOCYTE (%) 11.4 % (3-12); MONOCYTE COUNT 1.2 K/uL (0-0.8); NEUTROPHIL (%) 52.7 % (45-76); NEUTROPHIL COUNT 5.6 K/uL (1.8-6.4); NRBC (%) 0.2 /100 WBC (0-0); PLATELET COUNT 583 K/uL (156-360); RBC DIS.WIDTH-CV 16.3 % (11.8-14.6); RBC DIS.WIDTH-SD 50.4 % (39-53); RED BLOOD COUNT 3.31 M/uL (3.80-5.20); WHITE BLOOD COUNT 10.5 K/uL (4.1-10.2)
[2017-11-24 11:54] LABS: CHLORIDE 97 MEQ/L (99-109); POTASSIUM 3.5 MEQ/L (3.7-5.4); SODIUM 137 MEQ/L (136-147)
[2017-11-24 11:59] LABS: CREATININE 1.6 MG/DL (0.6-1.3); GFR ESTIMATE (CALCULATED) 34 mL/min/; GLUCOSE 271 mg/dL (70-99); UREA NITROGEN (BUN) 19 mg/dL (9-23)
[2017-11-25] VITALS (20 sets, daily range): BP systolic 126–181; BP diastolic 58–101
[2017-11-25 07:13] LABS: BASOPHIL (%) 0.7 % (0-1); BASOPHIL COUNT 0.1 K/uL (0-0.1); EOSINOPHIL (%) 4.3 % (0-5); EOSINOPHIL COUNT 0.5 K/uL (0-0.3); IMMATURE GRANULOCYTE (%) 1.7 % (0.0-0.7); LYMPHOCYTE (%) 34.8 % (15-42); LYMPHOCYTE COUNT 4.3 K/uL (1.0-2.8); MCH 27.1 PG (29.0-34.0); MCHC 31.3 G/DL (30.0-36.0); MCV 86.7 FL (83-99); MONOCYTE (%) 11.1 % (3-12); MONOCYTE COUNT 1.4 K/uL (0-0.8); NEUTROPHIL (%) 47.4 % (45-76); NEUTROPHIL COUNT 5.9 K/uL (1.8-6.4); NRBC (%) 0.2 /100 WBC (0-0); PLATELET COUNT 612 K/uL (156-360); RBC DIS.WIDTH-CV 16.5 % (11.8-14.6); RBC DIS.WIDTH-SD 50.6 % (39-53); RED BLOOD COUNT 3.69 M/uL (3.80-5.20); WHITE BLOOD COUNT 12.5 K/uL (4.1-10.2)
[2017-11-25 07:43] LABS: CHLORIDE 97 MEQ/L (99-109); CREATININE 1.6 MG/DL (0.6-1.3); GFR ESTIMATE (CALCULATED) 34 mL/min/; GLUCOSE 204 mg/dL (70-99); MAGNESIUM 1.7 mg/dl (1.3-2.7); PHOSPHORUS 3.3 mg/dL (2.5-4.9); POTASSIUM 3.4 MEQ/L (3.7-5.4); SODIUM 138 MEQ/L (136-147); UREA NITROGEN (BUN) 19 mg/dL (9-23)
[2017-11-25] MEDS ORDERED: HUMULIN N100 UNITS/ SC (09:45)
[2017-11-26] VITALS (12 sets, daily range): BP systolic 116–176; BP diastolic 58–99
[2017-11-26 06:51] LABS: CHLORIDE 98 MEQ/L (99-109); CREATININE 1.9 MG/DL (0.6-1.3); GFR ESTIMATE (CALCULATED) 28 mL/min/; MAGNESIUM 1.9 mg/dl (1.3-2.7); POTASSIUM 3.4 MEQ/L (3.7-5.4); SODIUM 142 MEQ/L (136-147); UREA NITROGEN (BUN) 22 mg/dL (9-23)
[2017-11-26 06:53] LABS: GLUCOSE 76 mg/dL (70-99); PHOSPHORUS 4.7 mg/dL (2.5-4.9)
[2017-11-26 08:48] LABS: BASOPHIL (%) 0.8 % (0-1); BASOPHIL COUNT 0.1 K/uL (0-0.1); EOSINOPHIL (%) 3.2 % (0-5); EOSINOPHIL COUNT 0.4 K/uL (0-0.3); HEMATOCRIT 31.1 % (36.0-46.0); HEMOGLOBIN 9.6 G/DL (11.9-15.5); IMMATURE GRANULOCYTE (%) 1.4 % (0.0-0.7); LYMPHOCYTE (%) 36.6 % (15-42); LYMPHOCYTE COUNT 4.8 K/uL (1.0-2.8); MCH 27.6 PG (29.0-34.0); MCHC 30.9 G/DL (30.0-36.0); MCV 89.4 FL (83-99); MONOCYTE (%) 11.8 % (3-12); MONOCYTE COUNT 1.6 K/uL (0-0.8); NEUTROPHIL (%) 46.2 % (45-76); NEUTROPHIL COUNT 6.1 K/uL (1.8-6.4); PLATELET COUNT 616 K/uL (156-360); RBC DIS.WIDTH-CV 16.9 % (11.8-14.6); RED BLOOD COUNT 3.48 M/uL (3.80-5.20); WHITE BLOOD COUNT 13.1 K/uL (4.1-10.2)
[2017-11-27] VITALS (8 sets, daily range): BP systolic 135–166; BP diastolic 64–91
[2017-11-27 04:34] LABS: BASOPHIL (%) 0.6 % (0-1); BASOPHIL COUNT 0.1 K/uL (0-0.1); EOSINOPHIL (%) 2.2 % (0-5); EOSINOPHIL COUNT 0.3 K/uL (0-0.3); HEMATOCRIT 30.6 % (36.0-46.0); HEMOGLOBIN 9.7 G/DL (11.9-15.5); IMMATURE GRANULOCYTE (%) 1.4 % (0.0-0.7); LYMPHOCYTE (%) 38.5 % (15-42); LYMPHOCYTE COUNT 5.4 K/uL (1.0-2.8); MCHC 31.7 G/DL (30.0-36.0); MCV 88.4 FL (83-99); MONOCYTE (%) 11.8 % (3-12); MONOCYTE COUNT 1.6 K/uL (0-0.8); NEUTROPHIL (%) 45.5 % (45-76); NEUTROPHIL COUNT 6.4 K/uL (1.8-6.4); PLATELET COUNT 533 K/uL (156-360); RBC DIS.WIDTH-CV 16.9 % (11.8-14.6); RBC DIS.WIDTH-SD 53.1 % (39-53); RED BLOOD COUNT 3.46 M/uL (3.80-5.20)
[2017-11-27 04:46] LABS: ALBUMIN 3.1 g/dL (3.2-4.8)
[2017-11-27 04:47] LABS: CHLORIDE 102 mEq/L (99-109); POTASSIUM 3.7 mEq/L (3.7-5.4); SODIUM 141 mEq/L (136-147)
[2017-11-27 04:49] LABS: GLUCOSE 71 mg/dL (70-99); TOTAL PROTEIN 6.9 g/dL (6.4-8.3)
[2017-11-27 04:51] LABS: TOTAL BILIRUBIN 0.4 mg/dL (0.0-1.0)
[2017-11-27 04:53] LABS: ALKALINE PHOSPHATASE 79 IU/L (3-129); CREATININE 2.1 mg/dL (0.6-1.3); GFR ESTIMATE (CALCULATED) 25 mL/min/
[2017-11-27 04:54] LABS: AST (GOT) 16 IU/L (2-34); UREA NITROGEN (BUN) 26 mg/dL (9-23)
[2017-11-27 04:56] LABS: ALT (GPT) 11 IU/L (3-49)
[2017-11-27 07:32] LABS: APPEARANCE SL.HAZY ((CLEAR)); BILIRUBIN NEGATIVE; BLOOD NEGATIVE; COLOR YELLOW ((YELLOW)); GLUCOSE (STRIP) NEGATIVE; KETONES NEGATIVE; LEUKOCYTES TRACE; NITRITE NEGATIVE; PROTEIN (STRIP) 100; SPECIFIC GRAVITY 1.015 (1.000-1.030); UROBILINOGEN 0.2 MG/DL (0.2-1.0)
[2017-11-27 07:40] LABS: BACTERIA RARE /HPF; EPITHELIAL CELLS 2+ /HPF; MUCUS TRACE /LPF; RED BLOOD CELLS 0-5 /HPF (0-5); UCUL ADDED? YES
[2017-11-28] VITALS (7 sets, daily range): BP systolic 132–174; BP diastolic 65–84
[2017-11-28 05:39] LABS: BASOPHIL (%) 0.9 % (0-1); EOSINOPHIL (%) 2.4 % (0-5); EOSINOPHIL COUNT 0.3 K/uL (0-0.3); HEMATOCRIT 31.9 % (36.0-46.0); HEMOGLOBIN 9.8 G/DL (11.9-15.5); IMMATURE GRANULOCYTE (%) 1.6 % (0.0-0.7); LYMPHOCYTE (%) 36.4 % (15-42); LYMPHOCYTE COUNT 5.1 K/uL (1.0-2.8); MCH 27.7 PG (29.0-34.0); MCHC 30.7 G/DL (30.0-36.0); MCV 90.1 FL (83-99); MONOCYTE (%) 10.5 % (3-12); MONOCYTE COUNT 1.5 K/uL (0-0.8); NEUTROPHIL (%) 48.2 % (45-76); NEUTROPHIL COUNT 6.7 K/uL (1.8-6.4); PLATELET COUNT 542 K/uL (156-360); RBC DIS.WIDTH-CV 16.8 % (11.8-14.6); RED BLOOD COUNT 3.54 M/uL (3.80-5.20)
[2017-11-28 05:40] LABS: BASOPHIL COUNT 0.1 K/uL (0-0.1)
[2017-11-28 06:05] LABS: ALBUMIN 3.1 G/DL (3.2-4.8); ALKALINE PHOSPHATASE 77 IU/L (3-129); ALT (GPT) 12 IU/L (3-49); AST (GOT) 35 IU/L (2-34); CHLORIDE 100 MEQ/L (99-109); CREATININE 2.1 MG/DL (0.6-1.3); GFR ESTIMATE (CALCULATED) 25 mL/min/; GLUCOSE 142 mg/dL (70-99); POTASSIUM 4.5 MEQ/L (3.7-5.4); SODIUM 138 MEQ/L (136-147); TOTAL BILIRUBIN 0.5 MG/DL (0.0-1.0); TOTAL PROTEIN 7.8 G/DL (6.4-8.3); UREA NITROGEN (BUN) 32 mg/dL (9-23)
[2017-11-29 03:54] VITALS: BP 147/70
[2017-11-29 06:01] LABS: BASOPHIL (%) 0.9 % (0-1); BASOPHIL COUNT 0.1 K/uL (0-0.1); EOSINOPHIL (%) 2.4 % (0-5); EOSINOPHIL COUNT 0.3 K/uL (0-0.3); HEMATOCRIT 31.6 % (36.0-46.0); HEMOGLOBIN 9.7 G/DL (11.9-15.5); IMMATURE GRANULOCYTE (%) 1.6 % (0.0-0.7); LYMPHOCYTE (%) 36.8 % (15-42); LYMPHOCYTE COUNT 4.8 K/uL (1.0-2.8); MCH 27.9 PG (29.0-34.0); MCHC 30.7 G/DL (30.0-36.0); MCV 90.8 FL (83-99); MONOCYTE (%) 10.8 % (3-12); MONOCYTE COUNT 1.4 K/uL (0-0.8); NEUTROPHIL (%) 47.5 % (45-76); NEUTROPHIL COUNT 6.3 K/uL (1.8-6.4); PLATELET COUNT 478 K/uL (156-360); RBC DIS.WIDTH-SD 55.4 % (39-53); RED BLOOD COUNT 3.48 M/uL (3.80-5.20); WHITE BLOOD COUNT 13.2 K/uL (4.1-10.2)
[2017-11-29 06:27] LABS: ALBUMIN 3.2 G/DL (3.2-4.8); ALKALINE PHOSPHATASE 71 IU/L (3-129); ALT (GPT) 9 IU/L (3-49); CHLORIDE 103 MEQ/L (99-109); CREATININE 1.9 MG/DL (0.6-1.3); GFR ESTIMATE (CALCULATED) 28 mL/min/; GLUCOSE 113 mg/dL (70-99); POTASSIUM 4.4 MEQ/L (3.7-5.4); SODIUM 140 MEQ/L (136-147); TOTAL BILIRUBIN 0.4 MG/DL (0.0-1.0); TOTAL PROTEIN 7.2 G/DL (6.4-8.3); UREA NITROGEN (BUN) 26 mg/dL (9-23)
[2017-11-29 06:29] LABS: AST (GOT) 14 IU/L (2-34)
[2017-11-29 07:52] VITALS: BP 143/67
[2017-11-29 11:30] VITALS: BP 144/66
[2017-11-29 12:33] LABS: BASE EXCESS 3.4 mEq/L (-3 to +3); BICARBONATE 26.5 mEq/L (22-26); CARBOXY HGB 2.1 % (0-5); COMMENTS - BLOOD GASES +C; DEVICE NC; METHEMOGLOBIN 1.6 % (0-1.5); O2 FLOW 1.5 L/MIN; PCO2 34 mm Hg (35-45); PO2 82 mm Hg (80-100); SITE LR +A; TOTAL RESP RATE 32 resp/min
[2017-11-29 15:57] VITALS: BP 140/60
[2017-11-29 19:48] VITALS: BP 150/82
[2017-11-29 23:41] VITALS: BP 147/63
[2017-11-30 05:17] VITALS: BP 140/61
[2017-11-30 06:08] LABS: BASOPHIL (%) 0.7 % (0-1); BASOPHIL COUNT 0.1 K/uL (0-0.1); EOSINOPHIL (%) 2.8 % (0-5); EOSINOPHIL COUNT 0.4 K/uL (0-0.3); HEMATOCRIT 29.6 % (36.0-46.0); HEMOGLOBIN 9.2 G/DL (11.9-15.5); IMMATURE GRANULOCYTE (%) 1.3 % (0.0-0.7); LYMPHOCYTE (%) 30.8 % (15-42); LYMPHOCYTE COUNT 3.9 K/uL (1.0-2.8); MCH 28.4 PG (29.0-34.0); MCHC 31.1 G/DL (30.0-36.0); MCV 91.4 FL (83-99); MONOCYTE (%) 12.6 % (3-12); MONOCYTE COUNT 1.6 K/uL (0-0.8); NEUTROPHIL (%) 51.8 % (45-76); NEUTROPHIL COUNT 6.6 K/uL (1.8-6.4); PLATELET COUNT 420 K/uL (156-360); RBC DIS.WIDTH-CV 17.2 % (11.8-14.6); RBC DIS.WIDTH-SD 57.2 % (39-53); RED BLOOD COUNT 3.24 M/uL (3.80-5.20); WHITE BLOOD COUNT 12.7 K/uL (4.1-10.2)
[2017-11-30 06:32] LABS: CHLORIDE 105 MEQ/L (99-109); CREATININE 1.6 MG/DL (0.6-1.3); GFR ESTIMATE (CALCULATED) 34 mL/min/; GLUCOSE 175 mg/dL (70-99); SODIUM 139 MEQ/L (136-147); UREA NITROGEN (BUN) 23 mg/dL (9-23)
[2017-11-30 07:44] VITALS: BP 161/82
[2017-11-30] MEDS ORDERED: DUONEB 2.5-0.5 M3 ML PEP (15:25)
[2017-11-30] MEDS ORDERED: MYCOSTATIN 100,60 ML MM (15:25)
[2017-11-30] MEDS ORDERED: QUETIAPINE FUMA50 MG PO (15:26)
[2017-11-30] MEDS ORDERED: LEVEMIR100 UNIT/2 SC (15:27)
[2017-11-30 16:16] VITALS: BP 148/72; BP 173/77
== END 2017-11-30 18:03 | DRG 853 ==
LOC: EME 14:41 → EDOF 23:55 → 4EAST 23:55 → 4WEST 23:55 → 3EAST 23:55 → ENRESERV 23:57 → 4EAST 10-26 00:59 → ENRESERV 10-26 09:28 → CANRESERV 10-26 09:36 → 4EAST 10-26 11:12 → ENRESERV 10-27 21:12 → 3EAST 10-27 23:09 → ENRESERV 11-10 06:42 → 4WEST 11-10 06:42 → ENRESERV 11-10 06:46 → 4WEST 11-10 07:05 → ENRESERV 11-27 09:25 → 3EAST 11-27 14:43
PROVIDERS: Emergency Medicine; Hospitalist; Internal Medicine; Internal Medicine Critical Care Medicine; Internal Medicine Pulmonary Disease; Obstetrics & Gynecology; Physician Assistant; Radiology Diagnostic Radiology; Specialist; Surgery; Thoracic Surgery (Cardiothoracic Vascular Surgery)
DX: A41.9 Sepsis, unspecified organism (principal); R65.20 Severe sepsis without septic shock; J86.9 Pyothorax without fistula; B95.4 Other streptococcus as the cause of diseases classified elsewhere; J18.9 Pneumonia, unspecified organism; J96.01 Acute respiratory failure with hypoxia; N17.9 Acute kidney failure, unspecified; E11.10 Type 2 diabetes mellitus with ketoacidosis without coma; J98.11 Atelectasis; E87.3 Alkalosis; E87.6 Hypokalemia; B37.0 Candidal stomatitis; D62 Acute posthemorrhagic anemia; F05 Delirium due to known physiological condition; I12.9 Hypertensive chronic kidney disease with stage 1 through stage 4 chronic kidney disease, or unspecified chronic kidney disease; E11.21 Type 2 diabetes mellitus with diabetic nephropathy; E11.22 Type 2 diabetes mellitus with diabetic chronic kidney disease; N18.3 Chronic kidney disease, stage 3 (moderate); K21.9 Gastro-esophageal reflux disease without esophagitis; E78.5 Hyperlipidemia, unspecified; E11.42 Type 2 diabetes mellitus with diabetic polyneuropathy; E21.0 Primary hyperparathyroidism; E55.9 Vitamin D deficiency, unspecified; F41.9 Anxiety disorder, unspecified; G47.00 Insomnia, unspecified; G47.30 Sleep apnea, unspecified; E89.0 Postprocedural hypothyroidism; N32.81 Overactive bladder; F32.9 Major depressive disorder, single episode, unspecified; G89.29 Other chronic pain; M25.512 Pain in left shoulder; E66.01 Morbid (severe) obesity due to excess calories; Z68.43 Body mass index [BMI] 50.0-59.9, adult; Z75.1 Person awaiting admission to adequate facility elsewhere; Z88.2 Allergy status to sulfonamides; Z79.4 Long term (current) use of insulin; Z23 Encounter for immunization
CPT/HCPCS: 32557; 36600; 70450; 71045; 71046; 71250; 71275; 76770; 76942; 80048; 80048 91; 80053; 80076; 81003; 82803; 82945; 82947 91; 82948; 83036; 83540; 83605; 83615; 83615 91; 83690; 83735; 83880; 83986 90; 84100; 84145 90; 84155; 84157; 84439; 84443; 84466; 84484; 85025; 85025 91; 85027; 85046; 85379; 85610; 85651; 85730; 86141; 86850; 86900; 86901; 86920; 87040; 87070; 87075; 87077; 87086; 87116; 87186; 87205; 87206; 87449; 87493; 87502; 87641; 88108; 88304; 88305; 89051; 90686; 93005; 93306; 93970; 94010; 94640; 94640 76; 94667; 94668; 94760; 94799; 97530 GO; 97530 GP; 99202; 99281; 99285; C1729; C1769; J0295; J0330; J0360; J0456; J0690; J0692; J0696; J1100; J1170; J1630; J1644; J1815; J1885; J1940; J2060; J2270; J2405; J2710; J2920; J2930; J3010; J3370; J3475; J7030; J7050; J7120; J7512; P9016; S0020